=== PATIENT | male | born 1955 | race Caucasian/White ===

== ENCOUNTER → 2022-06-14 | Outpatient (CLI) | payer MEDICARE, OTHER | LOC: RAD 09:00 | PROC: BQ101ZZ Fluoroscopy of Right Hip using Low Osmolar Contrast (ICD-10-PCS; principal; 2022-06-14) | DX: M16.11 Unilateral primary osteoarthritis, right hip (principal); M25.751 Osteophyte, right hip; M24.151 Other articular cartilage disorders, right hip | CPT/HCPCS: 73722; A9577; Q9967 ==